=== PATIENT | male | born 1995 | race Caucasian/White ===

== ENCOUNTER 2017-03-16 21:06 | Emergency (ER) | payer BC ==
[~2017-03-16] VITALS: Ht 177.8 cm; Wt 72.7 kg
[2017-03-16 21:09] VITALS: TEMP 98
[2017-03-16 23:23] VITALS: BP 117/44; PULSE 65
== END 2017-03-16 23:23 | disposition home or self-care (01) ==
LOC: COL.ER 21:06
DX: S06.0X0A Concussion without loss of consciousness, initial encounter (principal); W50.0XXA Accidental hit or strike by another person, initial encounter; Y93.72 Activity, wrestling